=== PATIENT | female | born 1970 ===

== ENCOUNTER 2018-01-24 02:33 | Emergency (ER) | payer BC ==
--- NOTE | 2018-01-24 02:53 | ED PDOC ---
HPI: Chest Pain Time Seen by Provider: 01/24/18 02:37 Chief Complaint (Nursing): Palpitations History Per: Patient History/Exam Limitations: no limitations Onset/Duration Of Symptoms: Hrs Current Symptoms Are (Timing): Still Present Additional Complaint(s): Hx of SVT presenting with palpitations, states that last night she felt palpitations, took her Inderall and performed vagal maneuvers and she felt better. States that less than one hour prior to arrival, she had same symptoms which did not resolve with vagal maneuvers. States that she states her heart was beating too fast and was causing her chest pain. No shortness of breath. States she was starting to feel mild dizziness. Past Medical History Reviewed: Historical Data, Nursing Documentation, Vital Signs Vital Signs: Last Vital Signs Temp 97.2 F L 01/24/18 03:08 Pulse 94 H 01/24/18 03:32 Resp 12 01/24/18 03:32 BP 123/78 01/24/18 03:32 Pulse Ox 98 01/24/18 03:32 - Medical History PMH: Cardia Arrhythmia (SVT) - Family History Family History: States: No Known Family Hx - Allergies Allergies/Adverse Reactions: Allergies Allergy/AdvReac Type Severity Reaction Status Date / Time levofloxacin [From Levaquin] Allergy Mild RASH Verified 01/24/18 02:45 prochlorperazine Allergy Mild RASH Verified 01/24/18 02:45 [From Compazine] LIZET Risk Score for UA/NSTEMI - LIZET Risk Score Age > 64: NO 3 or more CAD Risk Factors: NO Known CAD (Stenosis greater than 50%): NO Aspirin use in past 7 days: NO Severe Angina: NO EKG ST changes greater than 0.5mm: NO Positive Cardiac Marker: NO LIZET Score: 0 Risk %: 5% Curb-65 Severity Score - CURB-65 Severity Score Confusion: No Bun >19mg/dl (>7mmol/L): No Respiratory Rate greater than/equal to 30: No Systolic BP <90 or Diastolic BP less than/equal 60mmHg: No Age >64: No Curb-65 Score: 0 Percentage 30-day mortality: 0.6% Review of Systems ROS Statement: Except As Marked, All Systems Reviewed And Found Negative Cardiovascular: Positive for: Chest Pain, Light Headedness Physical Exam - Reviewed Nursing Documentation Reviewed: Yes Vital Signs Reviewed: Yes - Physical Exam Appears: Positive for: Well, Non-toxic, No Acute Distress Head Exam: Positive for: ATRAUMATIC, NORMAL INSPECTION, NORMOCEPHALIC Skin: Positive for: Pallor Eye Exam: Positive for: EOMI, Normal appearance, PERRL ENT: Positive for: Normal ENT Inspection Neck: Positive for: Normal, Painless ROM Cardiovascular/Chest: Positive for: Tachycardia Respiratory: Positive for: CNT, Normal Breath Sounds Gastrointestinal/Abdominal: Positive for: Normal Exam, Soft Back: Positive for: Normal Inspection Extremity: Positive for: Normal ROM Neurologic/Psych: Positive for: Alert, relays draftsperson II-XII, Oriented. Negative for: Motor/Sensory Deficits - ECG ECG: Positive for: Interpreted By Me, Viewed By Me ECG Rhythm: Positive for: SVT O2 Sat by Pulse Oximetry: 98 Pulse Ox Interpretation: Normal - Critical Care Total Time (In Min): 30 Documented Critical Care: Time excludes all time spent performint seperately billable procedures Medical Decision Making Medical Decision MakinAM A/P: Hx of SVT presenting with SVT -patient immediately placed in room, placed on monitor, EKG shows SVT, BP 140s/ 90s -i placed my fist in patient's abdomen and asked her to push back using her abdominal muscles which caused her SVT to break, patient's HR dropped from 195 to 85 and went up to low 100's in sinus tachycardia, patient states that during this she felt "completely better", pallor resolved and patient appeared much better -will continue to observe for 1 hour for reflex SVT 340AM -patient remains in NSR, well appearing, feeling well -referral given for cardiology -return precautions discussed -patient discharged in well appearing, good condition. Disposition - Clinical Impression Clinical Impression: Supraventricular tachycardia - Disposition Referrals: [facility] [place] [Outside] Jaxson Payne MD [Staff Provider] - Disposition: Routine/Home Disposition Time: 03:44 Condition: GOOD Instructions: Paroxysmal Supraventricular Tachycardia (DC) Forms: Modern Message (Japanese)
[2018-01-24 03:09] VITALS: TEMP 97.2
[2018-01-24 03:33] VITALS: BP 123/78; PULSE 94; RESP 12; O2SAT 98
== END 2018-01-24 03:44 | disposition home or self-care (01) ==
LOC: H.ER 02:33
DX: I47.1 Supraventricular tachycardia (principal)